=== PATIENT | female | born 1995 | race African-American/Black ===

== ENCOUNTER 2020-02-15 16:23 | Emergency (ER) | payer BC, OTHER ==
[~2020-02-15] VITALS: Ht 165.1 cm; Wt 69.9 kg
[2020-02-15 16:45] VITALS: BP 120/80; TEMP 99.6
== END 2020-02-15 18:40 | disposition home or self-care (01) ==
LOC: ED 16:23
DX: J06.9 Acute upper respiratory infection, unspecified (principal)
CPT/HCPCS: 87502; 87651; 99283

== ENCOUNTER 2021-05-23 10:52 | Emergency (ER) | payer OTHER ==
[2021-05-31 11:11] LABS: PLATELET COUNT 413 K/uL (152-353)
[2021-05-31 11:13] LABS: POTASSIUM 4.1 mmol/L (3.6-5.2)
== END 2021-05-23 16:40 | disposition home or self-care (01) ==
LOC: ED 10:52
PROVIDERS: Emergency Medicine Emergency Medical Services
DX: K80.20 Calculus of gallbladder without cholecystitis without obstruction (principal)
CPT/HCPCS: 36415; 80053; 81025; 82150; 83690; 85027; 96360; 96375; 99284; Q9963

== ENCOUNTER 2021-06-01 06:11 | Emergency (ER) | payer OTHER ==
[~2021-06-01] VITALS: Ht 165.1 cm; Wt 69.9 kg
[2021-06-01 06:17] VITALS: TEMP 97.7
[2021-06-01 07:05] LABS: PLATELET COUNT 339 K/uL (152-353)
[2021-06-01 07:30] LABS: POTASSIUM 4.3 mmol/L (3.6-5.2)
[2021-06-01 08:05] VITALS: BP 120/78
== END 2021-06-01 08:05 | disposition home or self-care (01) ==
LOC: ED 06:11
PROVIDERS: Family Medicine
DX: K80.20 Calculus of gallbladder without cholecystitis without obstruction (principal); K29.70 Gastritis, unspecified, without bleeding; R11.2 Nausea with vomiting, unspecified
CPT/HCPCS: 36415; 80053; 81025; 82150; 83690; 85027; 96374; 96375; 99284; J2175; J2405; J3490

== ENCOUNTER 2021-07-23 18:54 | Outpatient (CLI) | payer OTHER | END 2021-07-23 21:18 | disposition home or self-care (01) | LOC: LABW 18:54 | PROVIDERS: ATTEND Family Medicine | DX: Z20.822 Contact with and (suspected) exposure to COVID-19 (principal) | CPT/HCPCS: 81000; 87635; 87651; U0003 ==

== ENCOUNTER 2022-09-19 21:32 | Emergency (ER) | payer OTHER ==
[~2022-09-19] VITALS: Ht 154.9 cm; Wt 74.8 kg
[2022-09-19 23:05] VITALS: BP 121/87; TEMP 98.1
== END 2022-09-19 23:05 | disposition home or self-care (01) ==
LOC: ED 21:32
DX: G43.909 Migraine, unspecified, not intractable, without status migrainosus (principal); H53.8 Other visual disturbances; F17.210 Nicotine dependence, cigarettes, uncomplicated; R06.4 Hyperventilation
CPT/HCPCS: 99283